=== PATIENT | female | born 1980 | race Caucasian/White ===

== ENCOUNTER → 2022-11-30 12:59 | Outpatient (CLI) | payer OTHER, SELFPAY ==
--- NOTE | ~2022-11-30 | CT_ITS ---
EXAMINATION: CT sinus wo con DATE: 11/30/2022 13:19 INDICATION: Other C7 with allergic rhinitis TECHNIQUE: Computed tomography (CT) of the paranasal sinuses was performed without intravenous contra st. The dose-length product (DLP) was 279.12 mGy-cm. Iterative reconstruction was used. COMPARISON: None FINDINGS: The left frontal sinus and left maxillary sinus are hypoplastic. There is otherwise normal development and pneumatization of the paranasal sinuses. There is mild mucosal thickening of the left maxillary sinus. The frontal, sphenoid, ethmoid, and right maxillary sinuses are clear. The left inf undibulum is narrow. Visualized soft tissues are unremarkable. IMPRESSION: 1. Mild left maxillary sinusitis. Reviewed, dictated and finalized at location B.
== END ==
PROVIDERS: PCP Family Medicine Sports Medicine; Visit Provider Otolaryngology
DX: J30.2 Other seasonal allergic rhinitis (principal)
CPT/HCPCS: 70486

== ENCOUNTER → 2023-01-23 11:09 | Outpatient (CLI) | payer OTHER, SELFPAY ==
--- NOTE | ~2023-01-23 | US_ITS ---
EXAMINATION: US pelvic complete w TV DATE: 01/23/2023 11:39 INDICATION: Menorrhagia TECHNIQUE: Multiple transabdominal and endovaginal sonographic images of the pelvis were obtained. COMPARISON: None. FINDINGS: Uterus: 7.4 x 4.3 x 5.4 cm. Retroverted uterus. Endometrial complex measures 11 mm. Right Ovary: 2.8 x 2.2 x 2.4 cm. Vascular flow is present. No adnexal mass Left Ovary: 6.1 x 2.4 x 4.4 cm. Normal vascular flow is present. 2.8 cm simple left ovarian cyst, con taining a daughter cyst. No significant surrounding hypervascularity. There is trace free fluid in the pelvis, within physiologic range. IMPRESSION: Normal pelvic sonogram findings. Reviewed, dictated and finalized at location K.
== END ==
PROVIDERS: PCP Obstetrics & Gynecology; Visit Provider Obstetrics & Gynecology
DX: N92.0 Excessive and frequent menstruation with regular cycle (principal)
CPT/HCPCS: 76830; 76856

== ENCOUNTER → 2023-06-06 10:44 | Outpatient (CLI) | payer OTHER, SELFPAY ==
--- NOTE | ~2023-06-06 | XR_ITS ---
EXAMINATION:XR cervical spine min 6V DATE: 06/06/2023 11:31 INDICATION: Neck pain TECHNIQUE: AP, lateral in neutral, flexion, extension, lateral swimmers and odontoid views of the cer vical spine are provided. COMPARISON: None FINDINGS: Alignment is normal. There is no hypermobility with flexion or extension. The odontoid proc ess is intact. No fracture is identified. Vertebral body heights and disk spaces are normal. Preverte bral soft tissues are normal. IMPRESSION: 1. Unremarkable cervical spine radiographs. Reviewed, dictated and finalized at location F. [facility] [employer]
== END ==
PROVIDERS: PCP Family Medicine Sports Medicine; Visit Provider Chiropractor
DX: M54.2 Cervicalgia (principal)
CPT/HCPCS: 72052

== ENCOUNTER 2023-09-28 08:08 | Outpatient (CLI) | payer OTHER, SELFPAY ==
--- NOTE | ~2023-09-28 | MR_ITS ---
EXAMINATION: MR ankle LT wo con DATE: 09/28/2023 08:39 INDICATION: Left foot and ankle pain. Plantar fasciitis. TECHNIQUE: Magnetic resonance imaging (MRI) of the left ankle was performed without intravenous contr ast. Sequences included sagittal PD-weighted FS FSE, sagittal PD-weighted FSE, coronal PD-weighted FS FSE, coronal PD-weighted FSE, axial PD-weighted FS FSE, and axial PD-weighted FSE. COMPARISON: None. FINDINGS: Medial ankle ligaments: The deep and superficial components of the deltoid ligament are normal. Lateral ankle ligaments: Anterior talofibular ligament is thin. Calcaneofibular ligament and posterior talofibular ligament ar e normal. There are changes of prior sprain of anterior tibiofibular ligament characterized by thicke william and increased signal intensity. Posterior tibiofibular ligament is normal. Tendons: The medial and anterior ankle tendons are normal. The peroneal tendons are normal. Achilles tendon is normal. Plantar fascia: There is thickening and increased signal involving the central band of the plantar fascia. There is c omplete tear of the central band of the plantar fascia. There is an enthesophyte at the calcaneal att achment. Bones/other: Alignment is normal. No fracture. The talar dome is normal. Fluid: There is no glenohumeral joint effusion. IMPRESSION: 1. Complete tear of the central band of the plantar fascia. 2. Changes of lateral ankle sprain. Reviewed, dictated and finalized at location E.
== END 2023-09-28 08:09 ==
LOC: MICIMG 08:09
PROVIDERS: PCP Family Medicine Sports Medicine; Visit Provider Podiatrist Foot & Ankle Surgery
DX: M72.2 Plantar fascial fibromatosis (principal); S93.492A Sprain of other ligament of left ankle, initial encounter; X58.XXXA Exposure to other specified factors, initial encounter
CPT/HCPCS: 73721

== ENCOUNTER 2024-03-19 01:35 | Day surgery (SDC) | payer OTHER, SELFPAY ==
[2024-03-11 14:51] VITALS: BMI 22.7
--- NOTE | 2024-03-11 15:00 | SUR.PREOP ---
Report to the Outpatient Waiting Room, entrance under the green pavilion located off [facility], at time 0600 on date 03/19/24. Planned Procedure Time: 0730.? Time changes happen often and if your time is changed the preop area will call you the afternoon before. - You and your visitor will be asked to self-screen and do not enter if you have any COVID symptoms. Please call surgeon if you need to reschedule. - A mask is optional within the hospital at this time. Patients may have clear liquids (water, carbonated beverages, clear teas, apple juice) until 3 hours prior to surgery with a maximum of 20 ounces. - No food from midnight until time of surgery and no smoking - Infants may have breast milk until 4 hours before surgery, formula 6 hours prior to surgery. - Children will be allowed to drink immediately following surgery.? If applicable, please bring a bottle or sippy cup to assist with drinking. Juice, water, soda, and popsicles are readily available.? For infants on formula, please bring formula the day of surgery.? Pacifiers are allowed. Take only the following medications with a SIP of water on the morning of surgery: N/A DO NOT STOP ANY OF YOUR OTHER PRESCRIPTION MEDICATIONS PRIOR TO SURGERY EXCEPT THE FOLLOWING Medications to discontinue per physician N/A Date to take last dose N/A Please no make-up, nail danish, hairspray, perfume, deodorant, or body powder the day of surgery.? No jewelry (including any body piercings) or valuables the day of surgery, leave them at home.? Please take a shower or bath the night before, or the morning of, surgery with an antibacterial soap.? Wear comfortable, loose fitting clothing.? Children are encouraged to wear pajamas. - Jewelry must be removed prior to entering the operating room.? Rings and piercings that are not removed may be cut off. - The hospital will not accept responsibility for valuables.? - Please leave all valuables, including medications, at home the day of surgery. If you are going home after surgery, a licensed refrigerated company driver must drive you home.? - NO public transportation without another adult if you receive anesthesia. - We recommend that an adult stay with you for 24 hours following discharge. - We also recommend that you do not drive, make important decision, drink alcoholic beverages, or take any drugs that were not prescribed by your health care provider for at least 24 hours after your discharge time. For Pediatric surgeries, we recommend two adults accompany the child home. Follow any additional instructions given to you from your surgeon. Telephone instructions given to TIFFANY KC and asked if any additional questions and then verbalized understanding. Patient advised to call surgeon office or pre surgery nurse liaison [phone] if any additional questions.
--- NOTE | 2024-03-16 11:24 | P.HP_ITS ---
H&P: HPI History of Present Illness Date/Time: 03/16/24 11:24 Chief Complaint: left Foot pain Narrative: left foot pain for 2 years. Plantar aspect of the heel extending along the plantar foot. Unrelieved with cortisone injection, physical therapy, stretching, shoe inserts. Pain with daily activity and weight-bearing. Review of Systems Constitutional: Constitutional: Denies fever(s) Eyes: Eyes: Denies blurry vision ENT: Reports Normal hearing present Cardiovascular: Cardiovascular: Denies chest pain and Denies dyspnea Respiratory: Respiratory: Denies dyspnea and Denies wheezing Gastrointestinal: Gastrointestinal: Denies abdominal pain Genitourinary: Genitourinary: Denies urinary urgency Musculoskeletal: Musculoskeletal: Reports as per HPI and Denies numbness Integumentary/Breasts: Skin/Breast: Denies changing lesions and Denies sores Neurologic: Reports Normal hearing present, Denies behavioral changes, Denies confusion, Denies numbness and Denies convulsions Psychiatric: Psychiatric: Denies behavioral changes, Denies confusion and Denies hallucinations Endocrine: Endocrine: Denies heat intolerance Hematologic/Lymphatic: Hematologic/Lymphatic: Denies easy bleeding Allergic/Immunologic: Allergic/Immunologic: Denies wheezing PMFSH Past Medical History Medical History Plantar fascial fibromatosis of left foot Plantar fasciitis of left foot Surgical History Surgical History History of foot surgery Left: bone spur right- sesamoid surgery History of surgical removal of ganglion cyst x2 Family History Family History Father Hypertension Family history of diabetes mellitus in first degree relative Patient's father is in good health Diabetes mellitus Family history of allergic disorder Family history of elevated blood lipids Mother Family history of thyroid disease Family history of allergic disorder Grandparent Family history of Alzheimer's disease Social History Social History Social History: caffeine use Smoking status: Never smoker Alcohol intake: current Substance use: never Living arrangements: with family Occupation/Education: occupation Additional occupation/education comments: [employer] Gender identity (if verbalized by the patient): Female Spiritual care concerns: No Meds Home Medications and Allergies Home Medications Medication Instructions Recorded Confirmed Type No Home Medications 11/26/23 03/11/24 History Allergies Allergy/AdvReac Type Severity Reaction Status Date / Time No Known Allergies Allergy Verified 03/11/24 15:18 Exam Const: General: healthy appearing; No in distress or confusion Orientation/consciousness: oriented to person, oriented to place, oriented to time and No confusion HENMT: Head: normal to inspection, normocephalic and atraumatic Eyes: Conjunctivae: conjunctivae normal Sclera: sclerae normal Neck: Neck: supple and nontender Resp: Effort & Inspection: normal respiratory effort and no audible wheezes Cardio: Rate: regular rate Rhythm: regular rhythm Skin: General skin exam: no rashes or lesions noted Neuro: General: oriented to person, oriented to place, oriented to time and No confusion Extrem: Right upper extremity: normal to inspection Left upper extremity: normal to inspection Right lower extremity: normal to inspection, normal capillary refill, ankle Details: normal to inspection and abnormal ROM Details: pain with active ROM, pain with passive ROM and with range as follows (do rsiflexion -10, planter flexion 40, inversion 15, eversion 5); no tenderness and no swelling and foot Details: tenderness (plantar heel ), vascular exam (2+ dorsalis pedis pulse ), tendon exam and motor-sensory exam (strength 5/5 throughout . Light touch sensation intact throughout ); no crepitus; no edema Left lower extremity: ankle Details: abnormal ROM Details: pain with active ROM, pain with passive ROM and with range as follows (dorsiflexion -10, planter flexion 40, inversion 15, Eversion 5); no tenderness and no swelling and foot Details: tenderness (plantar heel ), no edema, vascular exam (2+ dorsalis pedis pulse) and motor-sensory exam (strength 5/5 except peroneal 4/5 . Light touch sensation intact ); no ecchymosis Psych: Affect: normal affect H&P: Results Imaging Foot MRI: My impression: MRI left foot shows thickening and degenerative changes plantar fascia left foot Assessment and Plan Assessment and plan (1) Plantar fasciitis of left foot: Code(s): M72.2 - Plantar fascial fibromatosis Status: Acute Assessment and Plan: left foot proximal plantar fascia as well as distal plantar fibroma. Still with pain despite daily stretching, cushioned inserts, previous cortisone injections, therapy. Operative and non operative treatment discussed. Discussed nonoperative and operative treatment options with the patient. Risks and benefits of each as well as alternatives were reviewed. All of the patient's questions were answered. The risks of surgery reviewed including but not limited to: Neurovascular damage, wound complication, infection, blood clot, pulmonary embolus, stroke, myocardial infarction, and anesthetic risks up to and including . Continued pain and possible dysfunction were explained. Specific risks of the procedure including later recurrence of deformity. No guarantees were offered. If complications occur, the patient understands the need for further treatment, possible further surgery. Patient verbalizes understanding and wishes to proceed. PLAN: Left partial plantar fascia release.
[2024-03-19] MEDS: ACETAMINOPHEN 500 MG TABLET 1000 MG PO (06:57)
[2024-03-19] MEDS: LACTATED RINGERS 1,000 ML 30 ML IV CONT (07:00)
[2024-03-19] MEDS: KETOROLAC 15 MG/ML VIAL (*BKC) IV PUSH (07:06)
--- NOTE | 2024-03-19 07:06 | WPDHPUPDATE1 ---
History and Physical Update Update Date/Time: 03/19/24 07:06 History and Physical has been reviewed, including an updated exam of the patient. There are NO changes in the patient's condition. Risks, benefits, and alternatives have been discussed and questions answered. Patient agrees to proceed with procedure.
--- NOTE | 2024-03-19 07:18 | WPDANESEPPF ---
Anes - Initial Pre Proc Eval Procedure: Operation Date: 03/19/24 07:30 Proposed Procedures p Left Plantar Fasciotomy - José Miguel Rueda MD Date/Time: 03/19/24 07:18 Surgeon: José Miguel Rueda MD Pre Op Diagnosis: left plantar fasciitis/ heel pain Patient Data Age: 44 Gender: F Height: 1.7 m Weight: 65.77 kg Allergies Allergy/AdvReac Type Severity Reaction Status Date / Time No Known Allergies Allergy Verified 03/19/24 06:13 Home Medications Medication Instructions Recorded Confirmed Type amoxicillin 875 mg-potassium 1 tablet PO BID 03/19/24 03/19/24 History clavulanate 125 mg tablet prednisone 20 mg tablet 20 mg PO DAILY 03/19/24 03/19/24 History Patient hx anesthesia problems: none Family hx anesthesia problems: none Results Review: All pre-operative results and documents have been reviewed as part of the pre-operative evaluation. [facility] [place] Past Medical History Medical History Plantar fascial fibromatosis of left foot Plantar fasciitis of left foot Surgical History Surgical History History of foot surgery Left: bone spur right- sesamoid surgery History of surgical removal of ganglion cyst x2 Family History Family History Father Hypertension Family history of diabetes mellitus in first degree relative Patient's father is in good health Diabetes mellitus Family history of allergic disorder Family history of elevated blood lipids Mother Family history of thyroid disease Family history of allergic disorder Grandparent Family history of Alzheimer's disease Social History Social History Social History: caffeine use Smoking status: Never smoker Alcohol intake: current Substance use: never Living arrangements: with family Occupation/Education: occupation 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 Informed Consent: The patient's anesthetic plan and its attendant risks and benefits were discussed with the patient/family/POA. Questions were solicited and answers provided to the satisfaction of the patient/family/POA.
[2024-03-19] MEDS: ceFAZolin 2 GM/D5W 50 ML 2 GM/50 ML BAG IVPB (07:27)
[2024-03-19] MEDS: BUPIVACAINE/EPINEPHRINE 0.5% 50 ML VIAL 20 ML INFILTRATE (07:43)
[2024-03-19 07:46] VITALS: BP 146/86; PULSE 80; RESP 16; TEMP 36.2; O2SAT 100
[2024-03-19 07:51] LABS: BEDSIDEPREGUCG Negative (Negative)
[2024-03-19 08:00] VITALS: BP 111/69; PULSE 89; RESP 16; O2SAT 100
--- NOTE | 2024-03-19 08:05 | P.OP_ITS ---
Procedure Note - Detailed Date of Procedure 03/19/24 Pre-op Diagnosis left plantar fasciitis/ heel pain Post-op Diagnosis Same Procedure Performed Left plantar fasciotomy Surgeon José Miguel Rueda MD Anesthesia MAC Indications 44-year-old with left foot plantar fasciitis unrelieved With multiple cortisone injection, physical therapy, inserts, activity modification and stretching. Presents for operative treatment. Description of Procedure Patient identified in the preoperative holding. Informed consent given. Operative extremity marked. Patient received intravenous antibiotics. Patient brought to the operating room where underwent IV sedation by anesthesia team. Positioned supine on operating room table. Time-out performed confirming the patient, site of the surgery and the plan. Left foot prepped and draped usual sterile surgical fashion using a ChloraPrep skin solution. 0.5% Marcaine plain was used as local anesthetic for the left heel. Patient marked the area of maximum intensity of pain on left heel. Using this as a centering point we made an approximately 4 centimeter sq around this area. This was done on left foot. We then used a 0.062 in K-wire to incise the skin in multiple positions for a total of 24 points. The radiofrequency probe was then inserted into each point and a radiofrequency shock was delivered to the area. At each area a release and division of the plantar fascia was performed. Steri-Strips were then a pplied to the foot. Steri-Strips were then applied to the foot. Sterile dressing applied. The patient was then woken from anesthesia and taken to the recovery room in stable condition. All sponge, needle, instrument counts were correct at the end of the case. Estimated Blood Loss 1 Tourniquet Time Total Tourniquet Time: 20 Drains No Packing No Pathology None sent Complications None Condition Stable Disposition PACU [facility] Billing Surgery - Charge Forward: Surgery Billing ([id number])
[2024-03-19 08:30] VITALS: BP 117/80; PULSE 78; RESP 16
== END 2024-03-19 08:50 | disposition home or self-care (01) ==
PROVIDERS: PCP Family Medicine Sports Medicine; Visit Provider Orthopaedic Surgery
PROC: (CPT 28008; principal; 2024-03-19 07:30)
DX: M72.2 Plantar fascial fibromatosis (principal); Z79.52 Long term (current) use of systemic steroids; Z98.890 Other specified postprocedural states
CPT/HCPCS: 28008; A9270; J0690; J1100; J1885; J2003; J2250; J2405; J2704; J3010; J7120

== ENCOUNTER 2024-10-01 02:49 | Day surgery (SDC) | payer OTHER, SELFPAY ==
[2024-09-21 13:44] VITALS: BMI 22.8
--- OUTSIDE RECORDS SUMMARY | 2024-10-01 02:52 | XMS_ITS | Referral Summary ---
Author Organization [address] [facility] [place] Address [address] [place] [id number] Care Team Providers Care Molding Associate Name Role Phone Ivonne oBogie NP Primary Care Provider [phone] Irving Carlos MD Unavailable [phone] Joés Miguel Rueda MD Unavailable [phone] Faby Hannah MD Unavailable [phone] Allergies No known active allergies Medications multivitamin capsule Take 1 capsule by mouth daily Active cholecalciferol (VITAMIN D-3) 5,000 unit capsule Take 1 capsule (5,000 Units total) by mouth daily Active ibuprofen (ADVIL,MOTRIN) 400 mg tablet Take by mouth every 6 (six) hours as needed for pain. Active fluticasone propionate (FLONASE) 50 mcg/actuation nasal spray daily Active fexofenadine (JUSTIN) 180 mg tablet 1 tablet (180 mg total) daily prn Active progesterone (PROMETRIUM) 200 mg capsule Take 1 capsule (200 mg total) by mouth daily Active traZODone (DESYREL) 150 mg tablet Take 0.5 tablets (75 mg total) by mouth nightly 45 tablet 1 3 Active Additional Information Patient not taking.Reported on 03/04/2024 azelastine (ASTELIN) 137 mcg (0.1 %) nasal spray Administer 2 sprays into each nostril 2 (two) times a day 3 Active UNABLE TO FIND Apply topically Med Name: compounded testosterone/est rogen cream Active magnesium glycinate 100 mg tablet Take 450 mg by mouth nightly Active ferrous sulfate 325 mg (65 mg of elemental iron) tabletIndicatio ns:Iron Deficiency Anemia Take 1 tablet (65 mg of elemental iron total) by mouth Every other day Active lidocaine (LIDODERM) 5 % [address] (CYMBALTA) 30 mg capsule 5 Active Active Problems Problem Noted Date Diagnosed Date Multinodular goiter 03/05/2024 Thyroid nodule 02/27/2022 Assessment & Plan (02/27/2022 12:45 PM CDT): - FNA done today of left thyroid nodule - will monitor right thyroid nodule on ultrasound, does not appear suspicious on imaging today - repeat ultrasound in 1 year Subclinical hypothyroidism 11/16/2020 Insomnia 11/12/2019 Resolved Problems Problem Noted Date Diagnosed Date Resolved Date Breast mass 09/22/2019 01/11/2023 Abnormal findings on diagnos tic imaging of breast 04/06/2019 01/11/2023 Abnormal magnetic resonance imaging of right breast 09/18/2018 01/11/2023 Abnormal mammogram of left breast 03/20/2018 01/11/2023 Ganglion cyst 01/18/2015 01/11/2023 Immunizations Immunization Administration Dates Next Due Influenza, Quadrivalent, Spl it, Preservative Free, Intramuscular 03/15/2020 Influenza, Trivalent, IM (MDV) 05/20/2013 Social History Tobacco Use Types Packs/Day Years Used Date Smoking Tobacco: Never Smokeless Tobacco: Never Tobacco Cessation:Counseling Given: Not Answered PHQ-2 Answer Date Recorded PHQ-2 Total Score (If total score is 3 or more points, staff should administer the PHQ-9) 0 06/24/2024 Comments No Sex and Gender Information Value Date Recorded Sex Assigned at Not on file Legal Sex Female 11:32 PM [employer] Gender Identity Not on file Sexual Orientation Not on file Last Filed Vital Signs Vital Sign Reading Time Taken Comments Blood Pressure 130/88 06/24/2024 9:18 AM [employer] Pulse 78 06/24/2024 9:18 AM [employer] Temperature 37 C (98.6 F) 06/24/2024 9:18 AM [employer] Respiratory Rate 20 04/26/2024 7:21 PM [employer] Oxygen Saturation 99% 06/24/2024 9:18 AM [employer] Inhaled Oxygen Concentration - - Weight 68 kg (150 lb) 06/24/2024 9:18 AM [employer] Height 170.2 cm (5' 7 ) 06/24/2024 9:18 AM [employer] Body Mass Index 23.49 06/24/2024 9:18 AM [employer] Plan of Treatment Not on file Procedures Procedure Name Priority Date/Time Associated Diagnosis Comments HEPATITIS C ANTIBODY Routine 06/24/2024 10:01 AM [employer] Encounter for hepatitis C screening test for low risk patient SCREENING MAMMOGRAM BILATERAL W DEIRDRE Schedule Routine, Read Routine (OP Routine) 06/05/2024 12:39 PM [employer] Screening mammogram, encounter for from Last 3 Months or Most Recently Relevant to Health Maintenance Results * Hepatitis C antibody Blood (06/24/2024 10:01 AM [employer]) Hep C Ab Nonreactive Nonreactive Comment: Interpretive Data Nonreactive: Antibodies to HCV not detected. Does NOT exclude the possibility of recent exposure to HCV. Equivocal: Equivocal for HCV antibodies. Supplemental molecular testing will be automatically performed to determine infection status in accordance with current CDC screening recommendations. Reactive: Positive for HCV antibodies. This may represent current or past HCV infection. Supplemental molecular testing will be automatically performed to determine current infection status in accordance with current CDC screening recommendations. Interpretive data was last revised on 2019. Blood 06/24/2024 10:0 1 AM [employer] 06/24/2024 7:49 PM [employer] Ivonne Boogie NP LAB MICROBIOLOGY - GENERAL ORDER BLANE Final Result [facility] [id number] Department [place] [address] * Screening Mammogram Bilateral W Deirdre (06/05/2024 12:39 PM [employer]) Anatomical Region Laterality Modality Breast Bilateral Mammography Narrative 06/08/2024 2:00 PM [employer] Mammogram Technique: Bilateral Digital Breast Tomosynthesis, Bilateral C-view 2D Screening mammogram. Views obtained: bilateral craniocaudal and bilateral mediolateral oblique. Computer Aided Detection was performed. Mammogram Findings: The present examination has been compared to prior imaging studies performed at [facility] on 03/30/2020, 04/03/2021, 04/12/2021, 05/16/2022, 05/27/2023 and 06/19/2023. There are scattered areas of fibroglandular density. There are amorphous calcifications with grouped distribution in the posterior upper outer quadrant of the right breast. There is no suspicious abnormality in the left breast. Impression: Calcifications in the right breast require additional evaluation. A diagnostic mammogram of the right breast is recommended at this time. OVERALL FINAL ASSESSMENT: BI-RADS CATEGORY 0: Incomplete: Need additional imaging evaluation. Procedure Note Genesis Burgos MD - 06/08/2024 Mammogram Technique: Bilateral Digital Breast Tomosynthesis, Bilateral C-view 2D Screening mammogram. Views obtained: bilateral craniocaudal and bilateral mediolateral oblique. Computer Aided Detection was performed. Mammogram Findings: The present examination has been compared to prior imaging studies performed at [facility] on 03/30/2020, 04/03/2021,04/12/2021, 05/16/2022, 05/27/2023 and 06/19/2023. There are scattered areas of fibroglandular density. There are amorphous calcifications with grouped distribution in the posterior upper outer quadrant of the right breast. There is no suspicious abnormality in the left breast. Impression: Calcifications in the right breast require additional evaluation. A diagnostic mammogram of the right breast is recommended at this time. OVERALL FINAL ASSESSMENT: BI-RADS CATEGORY 0: Incomplete: Need additional imaging evaluation. us Self Screening Mammogram IMG MAMMO PROCEDURES Fi nal Result from Last 3 Months or Most Recently Relevant to Health Maintenance Insurance [facility] [employer] B[employer]EF[employer] PLAN [facility] [place] [address] [facility] [employer] [employer]AN [place] Care Teams Molding Associate Relationship Specialty Start Date End Date Ivonne Boogie NP [address] [facility] [address] [place], [place] [id number] PCP - General Family Medicine 06/09/24 Irving Carlos MD [address] [facility] [address] [place] [address] Consulting Physician Obstetrics and Gynecology 06/24/24 José Miguel Rueda MD [address] [facility] [address] [place] [address] Referring Physician Orthopedic Surgery 06/24/24 Faby Hannah MD [address] [address] Consulting Physician Endocrinology Diabetes & Metabolism 06/24/24
--- OUTSIDE RECORDS SUMMARY | 2024-10-01 02:52 | XMS_ITS | Clinical Summary ---
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 Right BREAST BIOPSY 10/15/2018 Left BREAST BIOPSY 04/25/2021 Right PLANTAR FASCIA SURGERY RFA Medical History Medical History Date Comments Insomnia Thyroid nodule Chronic nasal congestion Ganglion cyst 01/18/2015 Plantar fasciitis Achilles tendonitis Family History Medical History Relation Name Comments Diabetes type II Father Hyperlipidemia Father Hypertension Father Other Father carotid endarte ctomy Prostate cancer Maternal Grandfather Myasthenia gravis Maternal Grandmother Ana's thyroiditis Mother Kidney cancer Mother's Brother Pancreatic cancer Mother's Sister Lung cancer Paternal Grandfather Neurodegenerative disease Paternal Grandmother Relation Name Status Comments Father Maternal Grandfather Maternal Grandmother Mother Mother's Brother Mother's Sister Paternal Grandfather Paternal Grandmother Social History Tobacco Use Types Packs/Day Years Used Date Smoking Tobacco: Never Smokeless Tobacco: Never Tobacco Cessation:Counseling Given: Not Answered PHQ-2 Answer Date Recorded PHQ-2 Total Score (If total score is 3 or more points, staff should administer the PHQ-9) 0 06/24/2024 Comments No Sex and Gender Information Value Date Recorded Sex Assigned at Not on file Legal Sex Female 11:32 PM [employer] Gender Identity Not on file Sexual Orientation Not on file Obstetrics History Last Filed Vital Signs Vital Sign Reading Time Taken Comments Blood Pressure 130/88 06/24/2024 9:18 AM [employer] Pulse 78 06/24/2024 9:18 AM [employer] Temperature 37 C (98.6 F) 06/24/2024 9:18 AM CEN[employer]PPL[employer] MANAGER Respiratory Rate 20 04/26/2024 7:21 PM [employer]ENTR[employer]PPLY MANAGER Oxygen Saturation 99% 06/24/2024 9:18 AM CENTRAL [employer]PPL[employer] MANAGER Inhaled Oxygen Concentration - - Weight 68 kg (150 lb) 06/24/2024 9:18 AM CENTRAL [employer]PPLY MANAGER Height 170.2 cm (5' 7 ) 06/24/2024 9:18 AM CENTRAL [employer]PPLY MANAGER Body Mass Index 23.49 06/24/2024 9:18 AM CENTRAL SUPPLY MANAGER Plan of Treatment Health Maintenance Due Date Last Done Comments Colon Cancer Screening-Colonoscopy 1978 DTaP/Tdap/Td Vaccine (1 - Tdap) 1989 Hepatitis B Screening 1996 Covid-19 Vaccine ( season) 2024 06/20/2020, 05/31/2020 Cervical Cancer Screening 08/18/2024 08/19/2023 Influenza Vaccine (Season Ended) 2025 03/15/2020, 05/20/2013 Breast Cancer Screening-Mammogram 06/05/2025 06/05/2024, 05/27/2023, 05/16/2022, Additional history exists Depression Screening 06/24/2025 06/24/2024, 06/12/19 23 Regular Well Visit/Exam 18-64 06/24/2025 06/24/2024, 01/11/2023, 12/18/2021 Hepatitis C Screening Completed 06/24/2024 HPV Vaccines Aged Out No longer eligi ble based on patient's age to complete this topic Pneumococcal vaccine <65 Aged Out No longer eligible based on patient's age to complete this topic Procedures Procedure Name Priority Date/Time Associated Diagnosis Comments HEPATITIS C ANTIBODY Routine 06/24/2024 10:01 AM [employer]EN[employer] MA[employer]GER Encounter for hepatitis C screening test for low risk patient SCREENING MAMMOGRAM BILATERAL W JAMISON Schedule Routine, Read Routine (OP Routine) 06/05/2024 12:39 PM [employer] MANAGER Screening mammogram, encounter for from Last 3 Months or Most Recently Relevant to Health Maintenance Results * Hepatitis C antibody Blood (06/24/2024 10:01 AM CEN[employer] MA[employer]GER) Hep C Ab Nonreactive Nonreactive Comment: Interpretive [...] on 2019. Blood 06/24/2024 10:0 1 AM CENTRAL SUPPLY MANAGER 06/24/2024 7:49 PM CENTRAL SUPPLY MANAGER Ivonne Boogie NP LAB MICROBIOLOGY - GENERAL ORDER BLANE Final Result [facility] [id number] Department [place] [address] * Screening Mammogram Bilateral W Jamison (06/05/2024 12:39 PM CENTR[employer]PPL[employer] MANAGER) Anatomical Region Laterality Modality Breast Bilateral Mammography Narrative 06/08/2024 2:00 PM CENTR[employer] MANAGER Mammogram Technique: Bilateral Digital Breast Tomosynthesis, Bilateral C-view 2D Screening mammogram. Views obtained: bilateral craniocaudal and bilateral mediolateral oblique. Computer Aided Detection was performed. Mammogram Findings: The present examination has been compared to prior imaging studies performed at [facility] on 03/30/2020, 04/03/2021, 04/12/2021, 05/16/2022, 05/27/2023 [...] compared to prior imaging studies performed at [facility] on 03/30/2020, 04/03/2021,04/12/2021, 05/16/2022, 05/27/2023 and [...] Most Recently Relevant to Health [place] [address] [facility]ENEF[facility] [employer] [facility]AN Care Teams Casino Beverage Server Relationship Specialty Start Date End Date Ivonne Boogie NP [address] [facility] [address] [place] [address] PCP - General Family Medicine 06/09/24 Irving Carlos MD [address] [facility] [address] [place] [address] Consulting Physician Obstetrics and Gynecology 06/24/24 José Miguel Rueda MD [address] [facility] [address] [place] [address] Referring Physician Orthopedic Surgery 06/24/24 Faby Hannah MD [address] [address] Consulting Physician Endocrinology Diabetes & Metabolism 06/24/24
--- OUTSIDE RECORDS SUMMARY | 2024-10-01 02:52 | XMS_ITS | Clinical Summary ---
Author Organization [facility] Address [address] [place] [id number] Care Team Providers Care Core Baker Name Role Phone Faby Dowd MD Primary Care Provider Allergies No known active allergies Medications baclofen (LIORESAL) 10 MG tablet Take 0.5 tablets (5 mg total) by mouth 3 (three) times daily as needed (spasms/pain ). 12 tablet 12/21/2022 Active Social History Tobacco Use Types Packs/Day Years Used Date Smoking Tobacco: Never Smokeless Tobacco: Never Tobacco Cessation:Counseling Given: Not Answered Alcohol Use Standard Drinks/Week Comments Yes 0 (1 standard drink = 0.6 oz pur e alcohol) socially Comments Unknown Sex and Gender Information Value Date Recorded Sex Assigned at Not on file Legal Sex Female 8:00 PM CDT Gender Identity Not on file Sexual Orientation Not on file Last Filed Vital Signs Vital Sign Reading Time Taken Comments Blood Pressure 135/92 12/21/2022 6:00 PM CDT Pulse 89 12/21/2022 6:00 PM CDT Temperature 36.8 C (98.3 F) 12/21/2022 6:00 PM CDT Respiratory Rate 18 12/21/2022 6:00 PM CDT Oxygen Saturation 99% 12/21/2022 6:00 PM CDT Inhaled Oxygen Concentration - - Weight 68 kg (150 lb) 12/21/2022 5:06 PM CDT Height 170.2 cm (5' 7 ) 12/21/2022 5:06 PM CDT Body Mass Index 23.49 12/21/2022 5:06 PM CDT Plan of Treatment Health Maintenance Due Date Last Done Comments Cervical Cancer Screening Pa p Smear (Age 30 to 64) Every 3 Years 1978 Colorectal Cancer Screening Colonoscopy (10 Years) 1978 Annual Physical 1981 Hepatitis C 1996 DTaP, Tdap and Td Vaccines ( 1 - Tdap) 1997 Hepatitis B Vaccines (1 of 3 - 19+ 3-dose series) 1997 Cervical Cancer Screening Pa p with HPV Testing (Age 30 to 64) Every 5 Years 2008 Cervical Cancer Screening wi th HPV 2008 Mammogram Screening 2018 COVID-19 Vaccine (3 - 2023-2 5 season) 2024 07/06/2020, 06/15/2020 Meningococcal B Vaccine Aged Out No l onger eligible based on patient's age to complete this topic Meningococcal Vaccine Aged Out No duy christi eligible based on patient's age to complete this topic Pneumococcal Vaccine: Pediatrics (0 to 5 Years) and At-Risk Patients (6 to 49 Years) Aged Out No longer eligible b ased on patient's age to complete this topic RSV Immunizations Under 20 Months Aged Out No longer eligible b ased on patient's age to complete this topic Insurance [facility] [place] [id number] [employer] [place] Care Teams Core Baker Relationship Specialty Start Date End Date Faby Dowd MD [address] [place] [id number] PCP - General SPORTS MEDICINE 12/21/22
[2024-10-01 06:08] VITALS: BP 133/85; PULSE 83; RESP 18; TEMP 36.4; O2SAT 100; BMI 23.1
[2024-10-01 06:24] LABS: BEDSIDEPREGUCG Negative (Negative)
[2024-10-01] MEDS: LACTATED RINGERS 1,000 ML 150 ML IV CONT (06:28)
--- NOTE | 2024-10-01 06:57 | P.PNAN_ITS ---
Anes - Initial Pre Proc Eval Procedure: Operation Date: 10/01/24 07:30 Proposed Procedures p Screening Colonoscopy - Faustino Craven MD Date/Time: 10/01/24 06:57 Surgeon: Faustino Craven MD Pre Op Diagnosis: screening Patient Data Age: 44 Gender: F Height: 1.7 m Weight: 67 kg Last Vital Signs Temp 36.4 C 10/01/24 06:08 Pulse 83 10/01/24 06:08 Resp 18 10/01/24 06:08 BP 133/85 10/01/24 06:08 Pulse Ox 100 10/01/24 06:08 O2 Del Method Room Air 10/01/24 06:08 Allergies Allergy/AdvReac Type Severity Reaction Status Date / Time No Known Allergies Allergy Verified 10/01/24 06:13 Home Medications Medication Instructions Recorded Confirmed Type cholecalciferol (vitamin D3) 125 125 mcg PO DAILY 09/21/24 10/01/24 History mcg (5,000 unit) capsule magnesium 200 mg tablet 400 mg PO HS 09/21/24 10/01/24 History multivitamin (Daily Multi-Vitamin 1 tablet PO DAILY 09/21/24 10/01/24 History tablet) Laboratory Tests 10/01/24 06:08 POC Urine HCG, Qual Negative (Negative) Patient hx anesthesia problems: none Family hx anesthesia problems: none Results Review: All pre-operative results and documents have been reviewed as part of the pre- operative evaluation. [facility] Past Medical History Medical History Left Achilles tendinitis Plantar fascial fibromatosis of left foot Plantar fasciitis of left foot Surgical History Surgical History History of foot surgery Left: bone spur right- sesamoid surgery History of surgical removal of ganglion cyst x2 Family History Family History Father Hypertension Family history of diabetes mellitus in first degree relative Patient's father is in good health Diabetes mellitus Family history of allergic disorder Family history of elevated blood lipids Mother Family history of thyroid disease Family history of allergic disorder Grandparent Family history of Alzheimer's disease Social History Social History Social History: caffeine use Smoking status: Never smoker Alcohol intake: current Drinks per week: 3 Substance use: never Substance use type: does not use Living arrangements: with family Occupation/Education: occupation 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 Informed Consent: The patient's anesthetic plan and its attendant risks and benefits were discussed with the patient/family/POA. Questions were solicited and answers provided to the satisfaction of the patient/family/POA.
--- NOTE | 2024-10-01 07:21 | PM.HPGS ---
History of Present Illness History of Present Illness Consent: Risks, benefits, and alternatives have been discussed and questions answered. Patient agrees to proceed with procedure. Chief complaint: screening Narrative: Maggie Guerra is a 44 year old female here for first screening colonoscopy Review of Systems Review of Systems: All systems reviewed & are unremarkable except as noted in HPI and below PMFSH Past Medical History Medical History (Updated 10/01/24 @ 07:22 by Faustino Craven MD) Colon cancer screening Left Achilles tendinitis Plantar fascial fibromatosis of left foot Plantar fasciitis of left foot Surgical History Surgical History History of foot surgery Left: bone spur right- sesamoid surgery History of surgical removal of ganglion cyst x2 Family History Family History Father Hypertension Family history of diabetes mellitus in first degree relative Patient's father is in good health Diabetes mellitus Family history of allergic disorder Family history of elevated blood lipids Mother Family history of thyroid disease Family history of allergic disorder Grandparent Family history of Alzheimer's disease Social History Social History Social History: caffeine use Smoking status: Never smoker Alcohol intake: current Drinks per week: 3 Substance use: never Substance use type: does not use Living arrangements: with family Occupation/Education: occupation 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[employer] Gender identity (if verbalized by the patient): Female Spiritual care concerns: No Meds Home Medications and Allergies Home Medications Medication Instructions Recorded Confirmed Type cholecalciferol (vitamin D3) 125 125 mcg PO DAILY 09/21/24 10/01/24 History mcg (5,000 unit) capsule magnesium 200 mg tablet 400 mg PO HS 09/21/24 10/01/24 History multivitamin (Daily Multi-Vitamin 1 tablet PO DAILY 09/21/24 10/01/24 History tablet) Allergies Allergy/AdvReac Type Severity Reaction Status Date / Time No Known Allergies Allergy Verified 10/01/24 06:13 Vital Signs Vital Signs - 24 hr 10/01/24 06:08 Temperature 97.6 F Pulse Rate 83 Respiratory Rate 18 Blood Pressure 133/85 Pulse Oximetry 100 Oxygen Delivery Room Air Exam Const: General: comfortable and no acute distress HENMT: Face/Nose/Sinus: Normal nares present Eyes: General: appearance normal, both eyes and all related structures Neck: Neck: no JVD Resp: Auscultation: clear to auscultation bilaterally Cardio: Rate: regular rate Rhythm: regular rhythm GI: Inspection: non-distended GI Palp: Yes Soft to palpation Skin: General skin exam: normal color Neuro: Speech: normal speech Extrem: General: normal to inspection Psych: Mental Status: mental status grossly normal Assessment and Plan Assessment and plan (1) Colon cancer screening: Code(s): Z12.11 - Encounter for screening for malignant neoplasm of colon Status: Acute Assessment and Plan: colonoscopy
[2024-10-01 07:38] VITALS: BP 94/52; PULSE 75; RESP 20; O2SAT 100
[2024-10-01 07:48] VITALS: BP 96/53; PULSE 82; RESP 20; O2SAT 100
[2024-10-01 07:54] VITALS: BP 112/71; PULSE 83; RESP 24; O2SAT 100
== END 2024-10-01 08:07 | disposition home or self-care (01) ==
PROVIDERS: Anesthesiology; PCP Nurse Practitioner Family; Referring Provider Nurse Practitioner Family; Visit Provider Internal Medicine Gastroenterology
PROC: 0DJD8ZZ Inspection of Lower Intestinal Tract, Via Natural or Artificial Opening Endoscopic (ICD-10-PCS; CPT 45378; principal; 2024-10-01 07:30)
DX: Z12.11 Encounter for screening for malignant neoplasm of colon (principal); K64.8 Other hemorrhoids
CPT/HCPCS: 45378; J2704; J7120